=== PATIENT | female | born 1970 | race Caucasian/White ===

== ENCOUNTER 2016-06-21 14:05 | Emergency (ER) | payer MEDICAID ==
[~2016-06-21] VITALS: Ht 172.7 cm; Wt 72.6 kg
[~2016-06-21 14:05] MED LIST: ALPR0.25 PO; HYDR1TAB12 PO; NAPR250T PO
[2016-06-21 16:00] LABS: ASPARTATE AMINO TRANSFERASE 177 U/L (15-37); BLOOD UREA NITROGEN 11 mg/dL (7-18)
[2016-06-21] MEDS ORDERED: OMNIPAQUE 350 MG/ML, 100ML BOTTLE ONE (16:54)
[2016-06-21] MEDS ORDERED: MAGNESIUM CITRATE 300ML ORAL SOL ONE (17:23)
[2016-06-21] MEDS ORDERED: MAGNESIUM CITRATE 300ML ORAL SOL PO ONE (17:30)
[2016-06-21 17:38] VITALS: BP 106/58
== END 2016-06-21 17:41 | disposition home or self-care (01) ==
LOC: ED 17:20
DX: K59.00 Constipation, unspecified (principal); R10.31 Right lower quadrant pain; Z88.0 Allergy status to penicillin; Z88.5 Allergy status to narcotic agent; Z88.8 Allergy status to other drugs, medicaments and biological substances
CPT/HCPCS: 36415; 74177; 80053; 81003; 83690; 84703; 85025; 99285; Q9967

== ENCOUNTER 2018-04-26 19:41 | Emergency (ER) | payer MEDICAID ==
[~2018-04-26] VITALS: Ht 172.7 cm; Wt 63.8 kg
--- NOTE | 2018-04-26 19:41 | NUR ---
SI with 3 attempts in the last 3 days, states she "held a knife to [my] throat but couldn't quite do it," pt also reports that she took an OD of Excedrin PM on 04/24 at appx 1700, pt states that she then "chickened out and took charcoal"
[2018-04-26 19:56] VITALS: BP 128/81
--- NOTE | 2018-04-26 20:01 | NUR ---
KARTHIKEYAN ZAVALA, AT BEDSIDE TO EVALUATE PT.
[2018-04-26] MEDS ORDERED: ALPR1TAB2 PO (20:08)
[2018-04-26] MEDS ORDERED: MORPHINE PO (20:08)
[2018-04-26] MEDS ORDERED: ESCI20TA10 PO (20:08)
[2018-04-26] MEDS ORDERED: ARIP5TAB13 PO (20:08)
--- NOTE | 2018-04-26 20:20 | NUR ---
PT REPORT FROM GLENNA PHAM. THIS RN TO ASSUME CARE OF PT. ROLLER DOORS IN PLACE. ALL BELONGINGS TAKEN FROM PT. MOM LEAVING AT THIS TIME.
[2018-04-26 20:42] LABS: HCG UR SG 1.032 (1.003-1.030)
--- NOTE | 2018-04-26 20:44 | NUR ---
Pt's mother, Mala, phone number:
[2018-04-26 20:54] LABS: AMPHETAMINE SCREEN, URINE Positive (Negative); BARBITURATE SCREEN, URINE Positive (Negative); BENZODIAZEPINE SCREEN, URINE Positive (Negative); CANNABINOID SCREEN, URINE Positive (Negative); COCAINE SCREEN, URINE Negative (Negative); METHADONE SCREEN, URINE Negative (Negative); OPIATE SCREEN, URINE Positive (Negative)
[2018-04-26 21:20] LABS: BASOPHILS # (AUTO) 0.04 x10^3/uL (0-0.1); BASOPHILS % (AUTO) 1 % (0-1); EOSINOPHILS # (AUTO) 0.11 x10^3/uL (0-0.4); EOSINOPHILS % (AUTO) 1 % (1-7); LYMPHOCYTES # (AUTO) 2.02 x10^3/uL (1-3.4); LYMPHOCYTES % (AUTO) 23 % (22-44); MD NO; MEAN CORPUSCULAR HEMOGLOBIN 28.8 pg (27.0-34.8); MEAN CORPUSCULAR HGB CONC 32.7 g/dL (32.4-35.8); MEAN CORPUSCULAR VOLUME 88.2 fL (80-100); MEAN PLATELET VOLUME 8.7 fL (7.4-10.4); MONOCYTES # (AUTO) 0.41 x10^3/uL (0.2-0.8); MONOCYTES % (AUTO) 5 % (2-9); NEUTROPHILS % (AUTO) 71 % (42-75); PLATELET COUNT 317 x10^3/uL (130-400); RED BLOOD COUNT 4.69 x10^6/uL (3.82-5.3); RED CELL DISTRIBUTION WIDTH 13.6 % (9.6-15.2)
[2018-04-26 21:30] LABS: ALANINE AMINOTRANSFERASE 119 U/L (12-78); ALBUMIN 3.5 g/dL (3.4-5.0); ANION GAP 6 mmol/L (5-15); CALCIUM 8.7 mg/dL (8.5-10.1); CHLORIDE 104 mmol/L (98-107); CREATININE 0.72 mg/dL (0.55-1.02)
[2018-04-26 21:35] LABS: ALKALINE PHOSPHATASE 230 U/L (45-117); BILIRUBIN,TOTAL 0.4 mg/dL (0.2-1.0); TOTAL PROTEIN 7.4 g/dL (6.4-8.2)
--- NOTE | 2018-04-26 21:37 | NUR ---
PT GIVEN CRACKERS AND PUDDING UPON REQUEST.
[2018-04-26 21:38] LABS: ACETAMINOPHEN < 2 mcg/mL (10-30); SALICYLATE LEVEL < 1.7 mg/dL (2.8-20.0)
--- NOTE | 2018-04-26 23:31 | NUR ---
PT SLEEPING COMFORTABLY ON BED. RR EVEN AND UNLABORED. NADN. AWAITING RECORDS FROM [facility] FOR POTENTIAL TRANSFER TO [facility].
--- NOTE | 2018-04-26 23:59 | NUR ---
TP: PER REPORT PT WAS INITIALLY AT [facility]. [facility] STATES THEY WOULD TAKE THE PT BACK ONCE MEDICALLY CLEARED. PT WITH MEDICAID HPN. PER [facility] PT HAS ALREADY HAD MOBILE ASSESSMENT AND DOES NOT REQUIRE ANOTHER TO BE ACCEPTED BACK AT THEIR FACILITY. REFERRAL PACKET FAXED TO [facility].
--- NOTE | 2018-04-27 00:42 | NUR ---
PT SLEEPING COMFORTABLY ON BED. RR EVEN AND UNLABORED. NADN. ROLLER DOORS IN PLACE. SITTER IN HALLWAY.
--- NOTE | 2018-04-27 00:48 | NUR ---
RECEIVED REPORT FROM VERO WHITING. PT. IN SECURED ROOM AND SITTER IN DOORWAY. PT. TO GO TO [facility].
--- NOTE | 2018-04-27 02:06 | NUR ---
Still awaiting accepting doctor from [facility] at this time.
--- NOTE | 2018-04-27 02:17 | NUR ---
PT. RESTING ON GURNEY IN SUPINE POSITON WITH SEZIURE PADS ON GURNEY. EYES CLOSED. EVEN, NON-LABORED RESPIRATIONS VISIBLE. ROOM SECURED. SITTER IN DOORWAY.
--- NOTE | 2018-04-27 02:25 | NUR ---
Cassie accepting Acccepting Doctor: Dr. Lundberg and Dr. Bates
--- NOTE | 2018-04-27 02:31 | NUR ---
RUDDYM called and all information provided. TABBY called and aware.
--- NOTE | 2018-04-27 02:38 | NUR ---
REPORT TO VERO MENDIETA AT [facility]. PT. TO D/C THERE WHEN TRANSPORT IS SET UP; STEPS IN PROCESS FOR THAT NOW.
--- NOTE | 2018-04-27 03:13 | NUR ---
[facility] code: [id number] REMSA in this ED at 0748
== END 2018-04-27 03:11 ==
LOC: ED 20:50
DX: R45.851 Suicidal ideations (principal); G43.909 Migraine, unspecified, not intractable, without status migrainosus; F41.1 Generalized anxiety disorder; F17.200 Nicotine dependence, unspecified, uncomplicated
CPT/HCPCS: 36415; 70450; 80053; 80307; 80329; 81025; 84703; 85025; 93005; 99285; G0480

== ENCOUNTER 2019-02-12 08:00 | Outpatient (CLI) | payer MEDICAID ==
[~2019-02-12 08:00] MED LIST changes: +ALPR1TAB2 PO; +ARIP5TAB13 PO; +ESCI20TA10 PO; -HYDR1TAB12 PO; +HYDR1TAB13 PO; +MORPHINE PO
[2019-02-12] MEDS ORDERED: LACTATED RINGERS 1,000 ML IV SCH (14:10)
[2019-02-12] MEDS ORDERED: ACETAMINOPHEN 500 MG TABLET PO ONE (14:30)
[2019-02-12] MEDS ORDERED: SCOPOLAMINE PATCH, 1.5MG PATCH.TD72 TD ONE (14:30)
[2019-02-12] MEDS ORDERED: GABAPENTIN 300 MG CAPSULE PO ONE (14:30)
[2019-02-12] MEDS ORDERED: ONDANSETRON ODT 8 MG PO ONE (14:30)
[2019-02-12] MEDS ORDERED: PHEN30CA3 PO (14:39)
[2019-02-12] MEDS ORDERED: DEXT10TA7 PO (14:40)
[2019-02-12 15:04] LABS: HCG UR SG 1.033 (1.003-1.030)
== END 2019-02-12 23:59 | disposition home or self-care (01) ==
LOC: OUT 08:00 → EDSTATUS 15:30 → OUT 23:59
PROVIDERS: ATTEND Obstetrics & Gynecology Female Pelvic Medicine and Reconstructive Surgery
DX: N39.3 Stress incontinence (female) (male) (principal); R10.2 Pelvic and perineal pain; N81.11 Cystocele, midline; M54.5 Low back pain; G43.809 Other migraine, not intractable, without status migrainosus; G44.89 Other headache syndrome; Z88.0 Allergy status to penicillin; Z90.49 Acquired absence of other specified parts of digestive tract; Z88.8 Allergy status to other drugs, medicaments and biological substances; Z88.5 Allergy status to narcotic agent
CPT/HCPCS: 81025

== ENCOUNTER 2019-04-16 08:37 | Day surgery (SDC) | payer MEDICAID ==
[~2019-04-16] VITALS: Ht 172.7 cm; Wt 81.3 kg
[~2019-04-16 08:37] MED LIST changes: +BUPIVACAINE/PF-EPI 0.25% 1:200K ONE; +CEFAZOLIN 1,000 MG ONE; +DEXAMETHASONE 4 MG/ML, 1ML ONE; +DEXT10TA7 PO; +FENTANYL PF 100 MCG/2ML ONE; +LIDOCAINE-MPF 2% ,5ML ONE; +MIDAZOLAM 1 MG/ML, 2ML ONE; +NEOMY/POLYMYXIN B GU IRR. 1 ML ONE; +ONDANSETRON 2MG/ML, 2ML ONE; +PHEN30CA3 PO; +PROPOFOL 10 MG/ML, 20ML ONE; +ROCURONIUM 10MG/ML,5ML ONE
[2019-04-16] MEDS ORDERED: LACTATED RINGERS 1,000 ML IV SCH (09:25)
[2019-04-16] MEDS ORDERED: CARI350T PO (09:29)
[2019-04-16] MEDS ORDERED: HYDR-3653 PO (09:29)
[2019-04-16 09:30] LABS: HCG UR SG 1.035 (1.003-1.030)
[2019-04-16] MEDS ORDERED: CARI1.5C2 PO (09:33)
[2019-04-16] MEDS ORDERED: ACETAMINOPHEN 500 MG TABLET ONE (09:56)
[2019-04-16] MEDS ORDERED: MEPERIDINE/PF 25MG/ML,1ML IVPush PRN (10:00)
[2019-04-16] MEDS ORDERED: OXYcodone 5 MG/5 ML ORAL.SOL UDC PO PRN (10:00)
[2019-04-16] MEDS ORDERED: ACETAMINOPHEN 500 MG TABLET PO ONE (10:00)
[2019-04-16] MEDS ORDERED: LORazepam 2 MG/ML, 1ML IVPush PRN (10:00)
[2019-04-16] MEDS ORDERED: ONDANSETRON 2MG/ML, 2ML IV PRN (10:00)
[2019-04-16 10:01] VITALS: BP 113/75
[2019-04-16] MEDS ORDERED: GLYCOPYRROLATE 0.2MG/1ML, 5ML ONE (10:54)
[2019-04-16] MEDS ORDERED: NEOSTIGMINE 1 MG/ML, 10ML ONE (10:54)
[2019-04-16] MEDS ORDERED: BUPIVACAINE/PF-EPI 0.25% 1:200K ONE (11:45)
[2019-04-16] MEDS ORDERED: FENTANYL PF 100 MCG/2ML ONE (13:05)
[2019-04-16] MEDS ORDERED: OXYcodone 5 MG/5 ML ORAL.SOL UDC ONE (13:05)
[2019-04-16] MEDS ORDERED: HYDROmorphone 1 MG/ML, 1ML INJ ONE (13:06)
[2019-04-16] MEDS: FENTANYL PF 100 MCG/2ML IV PRN ×3 (13:08→13:34)
[2019-04-16] MEDS: HYDROmorphone 2 MG/ML, 1ML IVPush PRN ×2 (13:44→13:53)
[2019-04-16] MEDS ORDERED: KETOROLAC 30 MG/1 ML ONE (14:36)
[2019-04-16] MEDS ORDERED: KETOROLAC 30 MG/1 ML IVPush SCH (15:00)
== END 2019-04-16 16:25 | disposition home or self-care (01) ==
LOC: OUT 08:37
PROVIDERS: ATTEND Obstetrics & Gynecology Female Pelvic Medicine and Reconstructive Surgery
DX: N81.4 Uterovaginal prolapse, unspecified (principal); N93.9 Abnormal uterine and vaginal bleeding, unspecified; N94.6 Dysmenorrhea, unspecified; N94.10 Unspecified dyspareunia; N39.46 Mixed incontinence; N32.81 Overactive bladder; G43.909 Migraine, unspecified, not intractable, without status migrainosus; D25.0 Submucous leiomyoma of uterus; N83.8 Other noninflammatory disorders of ovary, fallopian tube and broad ligament; N83.11 Corpus luteum cyst of right ovary; F32.9 Major depressive disorder, single episode, unspecified; F41.9 Anxiety disorder, unspecified; Z88.0 Allergy status to penicillin; Z90.49 Acquired absence of other specified parts of digestive tract; Z88.8 Allergy status to other drugs, medicaments and biological substances
CPT/HCPCS: 57265; 57282; 57288; 58552; 81025; 88307; C1771; J0690; J1100; J1170; J1885; J2250; J2405; J2704; J2710; J3010; J7120